=== PATIENT | male | born 1960 | race Caucasian/White ===

== ENCOUNTER 2017-06-17 08:33 | Observation (INO) | payer BC, OTHER ==
[~2017-06-17 08:33] MED LIST: Buffered Lidocaine 0.9% SYRIN* 5 ML/SYR SYRINGE INTRADERM ONE; Dexamethasone IV* 4 MG/ML 1 ML (4 MG) IV SLOW PU ONE; Famotidine IV* 10 MG/ML 2 ML (20 mg) IV ONE
[2017-06-17] MEDS ORDERED: Dexamethasone IV* 4 MG/ML 1 ML (4 MG) ONE (08:43)
[2017-06-17] MEDS ORDERED: Famotidine IV* 10 MG/ML 2 ML (20 mg) ONE (08:43)
[2017-06-17] MEDS ORDERED: ceFAZolin 2 GM PREMIX (*) 2 GM/50 ML BAG IVPB ONE (08:43)
[2017-06-17] MEDS ORDERED: Buffered Lidocaine 0.9% SYRIN* 5 ML/SYR SYRINGE ONE (08:44)
[2017-06-17] MEDS ORDERED: fentaNYL* 50 MCG/ML 2 ML VIAL (100 MCG VIAL) ONE ×2 (08:50→14:31)
[2017-06-17] MEDS ORDERED: Midazolam* 1 MG/ML 2 ML VIAL (2 MG) ONE (08:50)
[2017-06-17] MEDS ORDERED: Lidocaine 2% PF * 5 ML VIAL ONE (10:52)
[2017-06-17] MEDS ORDERED: Ondansetron INJ* 2 MG/ML VIAL ONE (10:57)
[2017-06-17] MEDS ORDERED: Succinylcholine* 20 MG/ML 10 ML VIAL ONE (10:57)
[2017-06-17] MEDS ORDERED: Propofol* 10 MG/ML 20 ML BTL IV PUSH ONE (10:57)
[2017-06-17] MEDS ORDERED: Bacitracin IV* 50,000 UNITS INJ ONE (11:03)
[2017-06-17] MEDS ORDERED: Thrombin 5,000 UNITS* 1 APPLIC KIT - topical use - TOPICAL ONE (11:03)
[2017-06-17] MEDS ORDERED: Lidocaine 1.5% EPI 1:200,000* 30 ML SDV ONE (11:03)
[2017-06-17] MEDS ORDERED: DiMENhydriNATE IV* 50 MG/ML VIAL IV PUSH PRN (11:55)
[2017-06-17] MEDS ORDERED: Ondansetron INJ* 2 MG/ML VIAL IV PRN (12:26)
[2017-06-17] MEDS ORDERED: Acetaminophen TAB* 325 MG PO PRN (12:26)
[2017-06-17] MEDS ORDERED: Magnesium Hydroxide LIQ* 30 ML UDC PO PRN (12:26)
[2017-06-17] MEDS ORDERED: Acetaminophen TAB* 325 MG ONE (13:48)
[2017-06-17] MEDS: fentaNYL* 50 MCG/ML 2 ML VIAL (100 MCG VIAL) IV PRN ×2 (14:31→14:39)
[2017-06-17] MEDS ORDERED: DiMENhydriNATE IV* 50 MG/ML VIAL ONE (14:53)
--- NOTE | 2017-06-17 14:59 | RAD ---
HISTORY: Lumbar discectomy COMPARISONS: June 12, 2017 VIEWS: 2 , portable intraoperative views of the lumbar spine performed during spinal surgery for localization FINDINGS: Lateral portable intraoperative views of the lumbar spine performed at approximately 11:46 AM demonstrates a metallic probe opposite of L4-L5 and L5 counting from L5 as the last lumbar type vertebral body. IMPRESSION: PORTABLE VIEWS OF THE LUMBAR SPINE FOR LOCALIZATION DURING SPINAL SURGERY
[2017-06-17] MEDS ORDERED: Ibuprofen TAB* 600 MG PO PRN (16:34)
[2017-06-17] MEDS: HYDROcodone/ACETAMIN 5-325 MG* 1 TAB PO PRN ×2 (16:48→20:56)
[2017-06-17] MEDS ORDERED: Atorvastatin* 20 MG TAB PO SCH (17:00)
[2017-06-17] MEDS ORDERED: Aspirin EC Low Dose* 81 MG TAB.EC PO SCH (20:00)
[2017-06-17] MEDS ORDERED: ROSUVASTATIN 10 MG PO SCH (21:00)
[2017-06-18] MEDS: HYDROcodone/ACETAMIN 5-325 MG* 1 TAB PO PRN ×3 (00:57→10:22)
[2017-06-18 07:46] VITALS: BP 141/63
--- NOTE | 2017-06-18 07:46 | PN ---
Progress Note - Progress Note Date of Service: 06/18/17 SOAP: Subjective: []POD # 1 Doing well,pre op leg pain better Moderate incisional pain Objective: []Neuro intact Dressing dry Assessment: []Satis post op course Plan: []D/C today D/C Instructions given
[2017-06-18] MEDS ORDERED: Fluticasone NASAL SPRAY 50MCG* 16 gm SPRAY BTL BOTH NARES SCH (09:00)
--- NOTE | 2017-06-21 17:21 | OP ---
OPERATIVE REPORT: DATE OF OPERATION: 06/17/17 DATE OF : 56 PRIMARY SURGEON: Cristhian Kelly MD ROLLING DOWN MACHINE OPERATOR: CLAIRE Tucker ANESTHESIA: General. PRE-OP DIAGNOSIS: Herniated nucleus pulposus, L4-5 on the left. POST-OP DIAGNOSIS: Herniated nucleus pulposus, L4-5 on the left. OPERATIVE PROCEDURE: Lumbar diskectomy, L4-5 on the left, with microdissection. DESCRIPTION OF PROCEDURE: After satisfactory general anesthesia was obtained, the patient was placed on the operating table in a prone position with the chest supported on the Sohail frame and the back slightly flexed. The lumbar region was then clipped, prepped and draped in a sterile manner for lum bar laminectomy and a skin incision outlined from L4 to L5. This incision was infiltrated with 1% Xy locaine with epinephrine, after which it was turned down sharply to the level of the lumbar fascia. The fascia was divided along the spinous processes of L4 and L5 and the paraspinal musculature stripp ed away from these posterior elements using the periosteal elevator and monopolar cautery. An intrao perative x-ray was obtained verifying proper interspace localization, after which a partial hemilamin ectomy was carried out by removing the inferior aspect of the L4 lamina and medial aspect of the face t complex using the combination of the Midas Subhash drill and Kerrison rongeurs. This was carried super iorly into the attachment of ligamentum flavum, was taken down. Ligamentum flavum was then removed w ith the Kerrison as well. At this point of surgery, the operating microscope was brought into the eld and the remainder of the procedure was done under microscopic visualization. Utilizing microdiss ection, epidural venous structures were coagulated and divided. Projecting beneath the L5 nerve root was noted to be a subcapsular herniation of disk material. An opening was made in the posterior kimi gitudinal ligament. Multiple frames of disk removed from this region. The disk space itself was the n entered and decompressed utilizing the pituitary forceps and curettes. It was felt that a satisfac tory decompression had been achieved. After assuring adequate hemostasis, the wound was thoroughly i rrigated after which the fascia was reapproximated with 0-Vicryl sutures. Subcutaneous tissue was cl osed with 3-0 Vicryl suture and the skin closed with skin clips. The estimated blood loss was less than 50 cc. The final sponge, padding and needle counts were corre ct. The patient was taken to the recovery room, extubated and in stable condition. [id number]/[facility] #: [id number]
== END 2017-06-18 10:35 | disposition home or self-care (01) ==
LOC: OR 08:33 → SSU 15:25
PROVIDERS: ADMIT Neurological Surgery; ATTEND Neurological Surgery
PROC: 01NB0ZZ Release Lumbar Nerve, Open Approach (ICD-10-PCS; 2017-06-17)
PROC: 0SB20ZZ Excision of Lumbar Vertebral Disc, Open Approach (ICD-10-PCS; principal; 2017-06-17 10:00)
DX: M51.26 Other intervertebral disc displacement, lumbar region (principal)
CPT/HCPCS: 72100; A9270-GY; G0378; J0330; J0690; J1100; J1240; J2250; J2405; J2704; J3010

== ENCOUNTER 2018-07-09 14:54 | Emergency (ER) | payer BC, OTHER ==
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
[2018-07-09] MEDS ORDERED: Acetaminophen TAB* 325 MG PO ONE (16:17)
[2018-07-09 17:04] VITALS: BP 167/77
== END 2018-07-09 18:08 | disposition home or self-care (01) ==
LOC: UCEAST 14:54
DX: S16.1XXA Strain of muscle, fascia and tendon at neck level, initial encounter (principal); S39.012A Strain of muscle, fascia and tendon of lower back, initial encounter; V40.5XXA Car driver injured in collision with pedestrian or animal in traffic accident, initial encounter; Y92.410 Unspecified street and highway as the place of occurrence of the external cause; R51 Headache; Z88.8 Allergy status to other drugs, medicaments and biological substances
CPT/HCPCS: 70450; 72125; 99213; A9270-GY; G0463

== ENCOUNTER 2019-08-04 09:36 | Emergency (ER) | payer BC, OTHER ==
--- OUTSIDE RECORDS SUMMARY | 2019-08-04 09:47 | XMS REPORT | Summary of Care ---
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 Reason for Visit Reason Comments Follow Up to hypertension, pt stated not taking januvia or tradjenta d/t insurancs and the side effcets Encounter Details Date Type Department Care Team Description 08/02/2019 Office Visit Kenneth Ramirez, Type 2 diabetes mellitus without complication, without long-term current use of insulin (HCC) (Primary Dx ); Practice MD Karen Essential hypertension; [address] Dyslipidemia; [place] [address] [place] [address] Congestion of right ear [phone] Allergies Active Allergy Reactions Severity Noted Date Comments Juan Inhibitors Respiratory Reaction Medium 05/21/2019 cough Environmental Swelling 07/15/2012 Statins Other Medium 10/21/2018 Myalgia documented as of this encounter (statuses as of 08/02/2019) Medications Medication Sig Dispensed Refills Start End Date Status Date daily vitamin PO Take 1 Tab by 0 Active TABS mouth DAILY. POTASSIUM CITRATE PO Take 99 mg by 0 Active mouth DAILY. cetirizine (ZYRTEC) Take 1 Tab by 30 Tab 2 Active 10 MG Oral mouth DAILY. 2 TabIndications: Environmental allergies Aspirin 81 MG Oral Take 81 mg by 0 Active Tab mouth DAILY. Loteprednol Place to the 0 Active Etabonate (ALREX) external eye 0.2 % Ophthalmic FOUR TIMES Suspension DAILY. Olopatadine Place 1 Drop 3 Bottle 1 Active (PATANOL) 0.1 % in both eyes 8 Ophthalmic Solution TWICE DAILY. cyclobenzaprine Take 1 Tab by 60 Tab 3 Active (FLEXERIL) 10 MG mouth THREE 9 Oral Tab TIMES DAILY NEEDED (muscle spasm). PHYTOSTEROLS PO Take by 0 Active mouth. POLICOSANOL PO Take by 0 Active mouth. Glucose Blood In 1 Strip by In 200 Bottle 1 Active Vitro Strip Vitro route 9 TWICE DAILY. Insurance perfered DX E11.9 Lancets Does not 1 Each by 200 Each 1 Active apply Misc Does not 9 apply route TWICE DAILY. Brand: [employer] perfered Dx:E11.9 2 time(s) A DAY Blood Glucose TEST BLOOD 1 Kit 0 Active Monitoring Suppl SUGAR TWO 9 (TRUE METRIX METER) TIMES DAILY w/Device Does not apply KitIndications: Type 2 diabetes with nephropathy (HCC) Red Yeast Rice 600 Take 1,200 mg 0 Active MG Oral Tab by mouth TWICE DAILY. Losartan Potassium Take 1 Tab by 30 Tab 5 Active 100 MG Oral Tab mouth DAILY. 0 fluticasone [place] 2 3 Bottle 1 Active (FLONASE) 50 MCG/ACT Sprays in 0 Nasal Suspension nose DAILY. [id number] Ethyl Take 2 Caps 360 Cap 1 Active Esters 1 g Oral Cap by mouth 0 TWICE DAILY. JANUVIA 50 MG Oral TAKE 1 TABLET 30 Tab 5 08/02/19 Discontinued Tab BY MOUTH 0 20 (Other) EVERY DAY linaGLIPtin Take 1 Tab by 30 Tab 5 08/02/19 Discontinued (TRADJENTA) 5 MG mouth DAILY. 0 20 (Other) Oral Tab documented as of this encounter (statuses as of 08/02/2019) Active Problems Problem Noted Date . 04/29/2019 DM (diabetes mellitus), type 2 with renal complications 02/05/2019 Rotator cuff tendinitis, right 01/11/2019 Borderline diabetes mellitus 07/13/2017 Chronic pain of left knee 04/12/2016 Hypertriglyceridemia 04/23/2012 Allergic rhinitis due to pollen 07/15/2008 Chronic ethmoidal sinusitis 07/15/2008 Esophageal reflux 07/16/2007 Hyperlipidemia 07/16/2007 IBS (irritable bowel syndrome) Overview: NL colonoscopy 2007 Fatty liver documented as of this encounter (statuses as of 08/02/2019) Immunizations Name Administration Dates Next Due Influenza (IM) Preservative Free 03/22/2019, 04/17/2015, 03/23/2010 PNEUMOCOCCAL POLYSACCHARIDE VACCINE 04/21/2019 documented as of this encounter Social History Tobacco Use Types Packs/Day Years Used Date Never Smoker Smokeless Tobacco: Never Used Alcohol Use Drinks/Week oz/Week Comments Yes 0 Standard drinks or equivalent 0.0 rare Sex Assigned at Date Recorded Not on file documented as of this encounter Last Filed Vital Signs Vital Sign Reading Time Taken Comments Blood Pressure 122/70 08/02/2019 8:52 AM EST Pulse 86 08/02/2019 8:52 AM EST Temperature 37.1 08/02/2019 8:52 AM C (98.7 EST F) Respiratory Rate - - Oxygen Saturation 98% 08/02/2019 8:52 AM EST Inhaled Oxygen Concentration - - Weight 96.1 kg (211 lb 14.4 oz) 08/02/2019 8:52 AM EST Height 180.3 cm (5' 11") 08/02/2019 8:52 AM EST Body Mass Index 29.55 08/02/2019 8:52 AM EST documented in this encounter Patient Instructions Patient InstructionsKaren Ramirez MD - 08/02/2019 9:00 AM EST1. Schedule non fasting blood tests in 3 months 2. Follow up after the tests and as needed documented in this encounter Progress Notes Karen Ramirez MD - 08/02/2019 9:00 AM EST PATIENT: Ike Irby : 1960 DATE OF SERVICE: 08/02/2019 SUBJECTIVE: 58-y.o. male for follow up of diabetes. Diabetic Review of Systems - medication compliance: compliant most of the time ( was doing well on Januvia, but it is not covered by his insurance. Stopped Tradjenta: thinks it was giving him arthralgia, nausea) , diabetic diet compliance: compliant most of the time, home glucose monitoring: is performed regularly, values are usually "all over the place" Other symptoms and concerns: recently treated for sinus infection. Still has some fullness in the R ear . BP well controlled Past Medical History: Diagnosis Date ? Chronic sinusitis ? Fatty liver ? GERD (gastroesophageal reflux disease) NL EGD, negative H.pylory ? Hypertriglyceridemia ? IBS (irritable bowel syndrome) NL colonoscopy 2007 ? Sleep apnea CPAP Current Outpatient Medications Medication Sig ? Aspirin 81 MG Oral Tab Take 81 mg by mouth DAILY. ? Blood Glucose Monitoring Suppl (TRUE METRIX METER) w/Device Does not apply Kit TEST BLOOD SUGAR TWO TIMES DAILY ? cetirizine (ZYRTEC) 10 MG Oral Tab Take 1 Tab by mouth DAILY. ? cyclobenzaprine (FLEXERIL) 10 MG Oral Tab Take 1 Tab by mouth THREE TIMES DAILY NEEDED (muscle spasm). ? daily vitamin PO TABS Take 1 Tab by mouth DAILY. ? fluticasone (FLONASE) 50 MCG/ACT Nasal Suspension [place] 2 Sprays in nose DAILY. ? Glucose Blood In Vitro Strip 1 Strip by In Vitro route TWICE DAILY. Insurance perfered DX E11.9 ? Lancets Does not apply Misc 1 Each by Does not apply route TWICE DAILY. Brand: [employer] Dx:E11.9 2 time(s) A DAY ? Losartan Potassium 100 MG Oral Tab Take 1 Tab by mouth DAILY. ? Loteprednol Etabonate (ALREX) 0.2 % Ophthalmic Suspension Place to the external eye FOUR TIMES DAILY. ? Olopatadine (PATANOL) 0.1 % Ophthalmic Solution Place 1 Drop in both eyes TWICE DAILY. ? [id number] Ethyl Esters 1 g Oral Cap Take 2 Caps by mouth TWICE DAILY. ? PHYTOSTEROLS PO Take by mouth. ? POLICOSANOL PO Take by mouth. ? POTASSIUM CITRATE PO Take 99 mg by mouth DAILY. ? Red Yeast Rice 600 MG Oral Tab Take 1,200 mg by mouth TWICE DAILY. No current facility-administered medications for this visit. OBJECTIVE: BP 122/70 (BP Location: Left arm, Patient Position: Sitting) | Pulse 86 | Temp 98.7 F (37.1 C) | Ht 5' 11" (1.803 m) | Wt 211 lb 14.4 oz (96.1 kg) | SpO2 98% | BMI 29.55 kg/m General appearance: alert, well appearing, and in no distress. Ears - bilateral TM's and external ear canals normal. Nasal exam - normal and patent, no erythema, discharge or polyps. Oropharyngeal exam - mucous membranes moist, pharynx normal without lesions. Neck exam - supple, no significant adenopathy. HGA1C - improved, CMP - improved sugar, FLP - low HDL Component Latest Ref Rng & Units 07/26/2019 07/26/2019 07/26/2019 8:51 AM 8:51 AM 8:51 AM Sodium 134 - 145 mmol/L 139 Potassium 3.5 - 5.1 mmol/L 4.0 Chloride 98 - 107 mmol/L 104 CO2 22 - 30 mmol/L 26 Calcium 8.3 - 10.1 mg/dl 9.5 Albumin 3.5 - 5.0 g/dl 4.6 BUN 9 - 20 mg/dl 15 Creatinine 0.8 - 1.5 mg/dl 0.7 (L) Glucose (Lab) 70 - 99 mg/dl 118 (H) Protein,Total 6.3 - 8.2 g/dl 8.0 Total Bilirubin 0.0 - 1.1 MG/DL 0.6 AST 17 - 59 U/L 39 ALT 21 - 72 U/L 44 ALKALINE PHOSPHATASE 40 - 150 U/L 59 eGFR See Interpretation Below ml/min/1.73ml Sq >60 BUN/Creatinine Ratio 6 - 22 RATIO 21 Anion Gap 3 - 11 mmol/L 9 A/G Ratio 0.8 - 2.0 ratio 1.4 Cholestrol <200 mg/dl 154 HDL >40 mg/dl 40 (L) Triglycerides <150 mg/dl 138 LDL Cholesterol <100 MG/DL 86 Cholesterol / HDL Ratio RATIO 3.9 LDL / HDL Ratio 2.2 Non-HDL Cholesterol 0 - 130 MG/DL 114 Patient Fasting: Yes Glycohemoglobin - POCT <=5.6 % 6.3 (H) I have recommended the following steps for improving diabetic care and outcome to him: diabetic dietdiscussed , home glucose monitoring emphasized, all medications, side effects and compliance discussed and glycohemoglobin and other lab monitoring discussed. . ICD-9-CM ICD-10-CM 1. Type 2 diabetes mellitus without complication, without long-term current use of insulin (HCC) 250.00 E11.9 COMPREHENSIVE METABOLIC PANEL Patient will try Tradjenta again (was sick last time he tried it) GLYCOHEMOGLOBIN A1C 2. Essential hypertension Well controlled 401.9 I10 3. Dyslipidemia Improved 272.4 E78.5 4. Congestion of right ear Normal exam. Continue Flonase 388.8 H93.8X1 Patient Instructions 1. Schedule non fasting blood tests in 3 months 2. Follow up after the tests and as needed Author: Karen Ramirez MD 08/02/2019 09:43 documented in this encounter Plan of Treatment Date Type Specialty Care Team Description 10/15/2019 Lab Internal Medicine 10/22/2019 Office Visit Family Practice Karen Ramirez MD [address] [place] [address] [phone] Name Type Priority Associated Diagnoses Order Schedule COMPREHENSIVE METABOLIC Lab Routine Type 2 diabetes Expected: 08/02/2019 PANEL mellitus without (Approximate), complication, without Expires: 08/02/2020 long-term current use of insulin (HCC) GLYCOHEMOGLOBIN A1C Lab Routine Type 2 diabetes Expected: 08/02/2019 mellitus without (Approximate), complication, without Expires: 08/02/2020 long-term current use of insulin (HCC) Health Maintenance Due Date Last Done Comments DTaP/Tdap/Td Vaccines ( - 1969 Tdap) DEPRESSION SCREENING 11/19/2019 11/18/2018, 11/18/2018 FOOT EXAM 01/06/2020 01/05/2019, 01/05/2019 HEMOGLOBIN A1C 01/24/2020 07/26/2019, 03/22/2019, 12/18/2018, Additional history exists ZOSTER IMMUNIZATION SERIES 04/21/2020 Postponed from (1 of 2) 2008 (Vaccine not available) LIPID DISORDER SCREENING 07/26/2020 07/26/2019, 12/18/2018, 06/03/2018, Additional history exists Diabetic Eye Exam 04/21/2021 04/21/2019, 04/17/2019, 04/17/2019 Colonoscopy 01/30/2022 01/31/2012 (Postponed), 08/06/2007, 08/06/2007 INFLUENZA VACCINE Completed 03/22/2019, 04/17/2015, 03/23/2010 PNEUMOCOCCAL 0-64 YRS Completed 04/21/2019 HEPATITIS A IMMUNIZATION Aged Out No longer eligible SERIES based on patient's age to complete this topic HPV IMMUNIZATION SERIES Aged Out No longer eligible based on patient's age to complete this topic MENINGOCOCCAL VACCINE IMM Aged Out No longer eligible based on patient's age to complete this topic documented as of this encounter Goals Goal Patient Goal Associated Recent Patient-Stated? Author Type Problems Progress Blood Pressure Blood Pressure 122/70 No James, < 140/90 (08/02/2019 Karen, 8:52 AM EST) Note: This is an individualized treatment (blood pressure) goal for Ike Irby: Displayed above (on the left) is your goal for blood pressure control. Your most recent blood pressure is also shown above, on the right. You should try to achieve blood pressures that are lower than your goal listed above (on the left). Glycohemoglobin A1c < 7.0 Diabetes 6.3 (07/26/2019 8:51 No Karen Ramirez, AM EST) Note: This is an individualized treatment (diabetes control, HgbA1C) goal for Ike Irby: Displayed above is your progress towards your HgbA1C goal. Your goal is shown above (on the left); your most recent HgbA1C is shown on the right. Note that lower numbers are better. Weight loss vs. 18 mo Lifestyle 19.6 (08/02/2019 8:52 AM Karen Lea MD max (lbs) >= 10 EST) Note: This is an individualized lifestyle goal for Ike Irby: Your body mass index (BMI) is more than 30. You should lose weight. A reasonable starting goal is to lose 10 pounds. Displayed above is how many pounds you have lost thus far towards your 10 pound weight loss goal. Keep immunizations current Lifestyle Karen Lea MD Note: This is an individualized lifestyle goal for Ike Irby: Please be sure to keep up-to-date on recommended immunizations. For example, this would include a yearly influenza vaccine. Immunization status can be seen by looking at the Health Maintenance sections of your [employer], Plan of Care, and any After Visit Summaries. Take all prescribed medications as Self-management No Karen Ramirez MD directed Note: This is an individualized self-management goal for Ike Irby: Please take all prescribed medications as directed. 1. Do not skip doses. If you cannot afford your medications, talk with your doctor. 2. Use a pill reminder system such as a pill box if needed. Your pharmacist can help you with this. 3. Contact your Pharmacy 5 days before your medication runs out. If you cannot take your medications for any reasons, talk with your doctor. 4. Please bring all of your medication bottles and inhalers (or a list of all your medications/inhalers) with you to every visit. Potential barriers to meeting all of your care plan goals will continue to be addressed on an ongoing basis. documented as of this encounter Results Not on filedocumented in this encounter Visit Diagnoses Diagnosis Type 2 diabetes mellitus without complication, without long-term current use of insulin (HCC) Essential hypertension Unspecified essential hypertension Dyslipidemia Other and unspecified hyperlipidemia Congestion of right ear documented in this encounter (Home) [facility] [phone] [address] (Work) [place] [address] documented as of this encounter
--- OUTSIDE RECORDS SUMMARY | 2019-08-04 09:47 | XMS REPORT | Summary of Care ---
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 Reason for Visit Reason Comments Nasal Congestion with right side head pressure, cough, post nasal drip, throat is dry, also states fatigue6 days Encounter Details Date Type Department Care Team Description 06/21/2019 Office Visit [place] Leesa Rivas, [facility] PA-C sinusitis, recurrence [address] not specified ([place] [address] [place] [address] Dx) [phone] Allergies Active Allergy Reactions Severity Noted Date Comments Juan Inhibitors Respiratory Reaction Medium 05/21/2019 cough Environmental Swelling 07/15/2012 Statins Other Medium 10/21/2018 Myalgia documented as of this encounter (statuses as of 06/21/2019) Medications Medication Sig Dispensed Refills Start Date End Date Status daily vitamin PO TABS Take 1 Tab by 0 Active mouth DAILY. POTASSIUM CITRATE PO Take 99 mg by 0 Active mouth DAILY. cetirizine (ZYRTEC) 10 Take 1 Tab by 30 Tab 2 01/31/2012 Active MG Oral TabIndications: mouth DAILY. Environmental allergies Aspirin 81 MG Oral Tab Take 81 mg by 0 Active mouth DAILY. Loteprednol Etabonate Place to the 0 Active (ALREX) 0.2 % external eye Ophthalmic Suspension FOUR TIMES DAILY. Olopatadine (PATANOL) Place 1 Drop in 3 Bottle 1 07/17/2017 Active 0.1 % Ophthalmic both eyes TWICE Solution DAILY. cyclobenzaprine Take 1 Tab by 60 Tab 3 08/21/2018 Active (FLEXERIL) 10 MG Oral mouth THREE Tab TIMES DAILY NEEDED (muscle spasm). fluticasone (FLONASE) [place] 2 Sprays 3 Bottle 1 10/21/2018 Active 50 MCG/ACT Nasal in nose DAILY. Suspension [id number] Ethyl TAKE 2 CAPSULES 360 Cap 1 01/05/2019 Active Esters 1 g Oral Cap TWICE DAILY PHYTOSTEROLS PO Take by mouth. 0 Active POLICOSANOL PO Take by mouth. 0 Active Glucose Blood In Vitro 1 Strip by In 200 Bottle 1 02/05/2019 Active Strip Vitro route TWICE DAILY. Insurance perfered DX E11.9 Lancets Does not apply 1 Each by Does 200 Each 1 02/05/2019 Active Misc not apply route TWICE DAILY. Brand: [employer] Dx:E11.9 2 time(s) A DAY Blood Glucose TEST BLOOD SUGAR 1 Kit 0 03/09/2019 Active Monitoring Suppl (TRUE TWO TIMES DAILY METRIX METER) w/Device Does not apply KitIndications: Type 2 diabetes with nephropathy (HCC) sitagliptin (JANUVIA) Take 1 Tab by 30 Tab 1 04/29/2019 Active 50 MG Oral Tab mouth DAILY. Losartan Potassium 100 Take 1 Tab by 30 Tab 1 04/29/2019 Active MG Oral Tab mouth DAILY. Red Yeast Rice 600 MG Take 1,200 mg by 0 Active Oral Tab mouth TWICE DAILY. cefuroxime (CEFTIN) 500 Take 1 Tab by 20 Tab 0 06/21/2019 Active MG Oral Tab mouth EVERY TWELVE HOURS. documented as of this encounter (statuses as of 06/21/2019) Active Problems Problem Noted Date . 04/29/2019 DM (diabetes mellitus), type 2 with renal complications 02/05/2019 Rotator cuff tendinitis, right 01/11/2019 Borderline diabetes mellitus 07/13/2017 Chronic pain of left knee 04/12/2016 Hypertriglyceridemia 04/23/2012 Allergic rhinitis due to pollen 07/15/2008 Chronic ethmoidal sinusitis 07/15/2008 Esophageal reflux 07/16/2007 Hyperlipidemia 07/16/2007 IBS (irritable bowel syndrome) Overview: NL colonoscopy 2008 Fatty liver documented as of this encounter (statuses as of 06/21/2019) Immunizations Name Administration Dates Next Due Influenza (IM) Preservative Free 03/22/2019, 04/17/2015, 03/23/2010 PNEUMOCOCCAL POLYSACCHARIDE VACCINE 04/21/2019 documented as of this encounter Social History Tobacco Use Types Packs/Day Years Used Date Never Smoker Smokeless Tobacco: Never Used Alcohol Use Drinks/Week oz/Week Comments Yes 0 Standard drinks or equivalent 0.0 rare Sex Assigned at Date Recorded Not on file Job Start Date Occupation Industry Not on file Not on file Not on file Travel History Travel Start Travel End No recent travel history available. documented as of this encounter Last Filed Vital Signs Vital Sign Reading Time Taken Comments Blood Pressure 130/72 06/21/2019 11:19 AM EST Pulse 96 06/21/2019 11:19 AM EST Temperature 36.3 06/21/2019 11:19 AM EST C (97.3 F) Respiratory Rate - - Oxygen Saturation 98% 06/21/2019 11:19 AM EST Inhaled Oxygen Concentration - - Weight 97.1 kg (214 lb) 06/21/2019 11:19 AM EST Height 180.3 cm (5' 11") 06/21/2019 11:19 AM EST Body Mass Index 29.85 06/21/2019 11:19 AM EST documented in this encounter Patient Instructions Patient InstructionsDoLeesa fountain PA-C - 06/21/2019 11:20 AM ESTEscribed ceftin 500mg, 1 pill twice a day x 10 days, take with food OTC Mucinex severe cold and cough syrup Avoid creamy foods and drink Rest, gargle with warm salt water Push water, soup, juice, tea with honey/lemon OTC Tylenol/Ibuprofen for fever/pain Call if not improving or with any questions or concerns documented in this encounter Progress Notes Leesa Doe PA-C - 06/21/2019 11:20 AM EST PATIENT: Ike Irby : 1960 DATE OF SERVICE: 06/21/2019 REFERRING PRACTITIONER: Self-Referred PRIMARY CARE PROVIDER: Karen Ramirez CHIEF COMPLAINT: Chief Complaint Patient presents with Nasal Congestion with right side head pressure, cough, post nasal drip, throat is dry, also states fatigue6 days Subjective HISTORY OF PRESENT ILLNESS: Ike Irby is a 58-y.o. male who presents with nasal congestion, right sided sinus pressure, coughing, post nasal drip, dry throat, fatigue 6 days Did use OTC Afrin nasal spray daily x 3 days Has DM II, this morning fasting was 115, taking all meds as prescribed Denies fever, chills, nausea, vomiting, diarrhea, chest pains, SOB Past Medical History: Diagnosis Date Chronic sinusitis Fatty liver GERD (gastroesophageal reflux disease) NL EGD, negative H.pylory Hypertriglyceridemia IBS (irritable bowel syndrome) NL colonoscopy 2007 Sleep apnea CPAP Past Surgical History: Procedure Laterality Date [place] KNEE SCOPE,SHAVE ARTICULAR CART date not documented Knee effusion Family History Problem Relation Age of Onset Thyroid Mother Current Outpatient Medications Medication Sig Aspirin 81 MG Oral Tab Take 81 mg by mouth DAILY. Blood Glucose Monitoring Suppl (TRUE METRIX METER) w/Device Does not apply Kit TEST BLOOD SUGAR TWO TIMES DAILY cetirizine (ZYRTEC) 10 MG Oral Tab Take 1 Tab by mouth DAILY. cyclobenzaprine (FLEXERIL) 10 MG Oral Tab Take 1 Tab by mouth THREE TIMES DAILY NEEDED (muscle spasm). daily vitamin PO TABS Take 1 Tab by mouth DAILY. fluticasone (FLONASE) 50 MCG/ACT Nasal Suspension [place] 2 Sprays in nose DAILY. Glucose Blood In Vitro Strip 1 Strip by In Vitro route TWICE DAILY. Insurance perfered DX E11.9 Lancets Does not apply Misc 1 Each by Does not apply route TWICE DAILY. Brand: [employer] Dx:E11.9 2 time(s) A DAY Losartan Potassium 100 MG Oral Tab Take 1 Tab by mouth DAILY. Loteprednol Etabonate (ALREX) 0.2 % Ophthalmic Suspension Place to the external eye FOUR TIMES DAILY. Olopatadine (PATANOL) 0.1 % Ophthalmic Solution Place 1 Drop in both eyes TWICE DAILY. [id number] Ethyl Esters 1 g Oral Cap TAKE 2 CAPSULES TWICE DAILY PHYTOSTEROLS PO Take by mouth. POLICOSANOL PO Take by mouth. POTASSIUM CITRATE PO Take 99 mg by mouth DAILY. Red Yeast Rice 600 MG Oral Tab Take 1,200 mg by mouth TWICE DAILY. sitagliptin (JANUVIA) 50 MG Oral Tab Take 1 Tab by mouth DAILY. No current facility-administered medications for this visit. Allergies Allergen Reactions Juan Inhibitors Respiratory Reaction cough Statins Other Myalgia Environmental Swelling Social History Socioeconomic History Marital status: Spouse name: Not on file Number of children: Not on file Years of education: Not on file Highest education level: Not on file Occupational History Not on file Social Needs Financial resource strain: Not on file Food insecurity Worry: Not on file Inability: Not on file Transportation needs Medical: Not on file Non-medical: Not on file Tobacco Use Smoking status: Never Smoker Smokeless tobacco: Never Used Substance and Sexual Activity Alcohol use: Yes Alcohol/week: 0.0 standard drinks Comment: rare Drug use: Not on file Sexual activity: Not on file Lifestyle Physical activity Days per week: Not on file Minutes per session: Not on file Stress: Not on file Relationships Social connections Talks on phone: Not on file Gets together: Not on file Attends shinto service: Not on file Active member of club or organization: Not on file Attends meetings of clubs or organizations: Not on file Relationship status: Not on file Intimate partner violence Fear of current or ex partner: Not on file Emotionally abused: Not on file Physically abused: Not on file Forced sexual activity: Not on file Other Topics Concern Back Care Not Asked Bike Helmet Not Asked Blood Transfusions Not Asked Caffeine Concern Not Asked Exercise Not Asked Hobby Hazards Not Asked International Travel Not Asked Service Not Asked Occupational Exposure Not Asked Seat Belt Not Asked Self-Exams Not Asked Sleep Concern Not Asked Special Diet Not Asked Stress Concern Not Asked Weight Concern Not Asked Social History Narrative The patient is . He lives with his and threechildren in [place]. 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 He has no pets athome. No one smokes in the home. REVIEW OF SYSTEMS: Skin: negative skin lesions Eyes: negative visual blurring Ears/Nose/Throat: positive rhinorrhea, sinus pressure, post nasal drip Respiratory: positive cough Cardiovascular: negative chest pain Gastrointestinal: negative abdominal pain, constipation, diarrhea, nausea or vomiting Genitourinary: negative burning on urination, dysuria Musculoskeletal: negative arthritis/joint pain Neurologic: negative numbness or tingling of feet or hands Psychiatric: negative anxiety Hematologic/Lymphatic/Immunologic: positive allergies Endocrine: positive diabetes II Objective PHYSICAL EXAMINATION: VITALS: BP 130/72 (BP Location: Left arm, Patient Position: Sitting) | Pulse 96 | Ht 5' 11" (1.803 m) | Wt 214 lb (97.1 kg) | SpO2 98% | BMI 29.85 kg/m Body mass index is 29.85 kg/m. General appearance: alert, mild distress, cooperative, oriented times 3 Skin: Skin color, texture, turgor normal. No rashes or lesions. Head: Normocephalic. No masses, lesions, tenderness or abnormalities Eyes: conjunctivae/corneas clear. PERRL, EOM's intact. Ears: positive findings: TMs bulging bilaterally Nose/Sinuses: positive findings: mucosa erythematous and swollen, clear rhinorrhea, frontal and maxillary sinuses tender to palpation Oropharynx: positive findings: mild oropharyngeal erythema, post nasal drip present Neck: Neck supple, FROM. No cervical or supraclavicular adenopathy. Lungs: Lungs clear. Chest symmetrical. Normal breath sounds. Heart: RRR. No murmur, clicks or gallops. No peripheral edema . IMPRESSION: ICD-9-CM ICD-10-CM 1. Acute frontal sinusitis, recurrence not specified 461.1 J01.10 Plan PLAN: Patient requested ceftin, says augmentin in past did not work Escribed ceftin 500mg, 1 pill twice a day x 10 days, take with food OTC Mucinex severe cold and cough syrup Avoid creamy foods and drink Rest, gargle with warm salt water Push water, soup, juice, tea with honey/lemon OTC Tylenol/Ibuprofen for fever/pain Call if not improving or with any questions or concerns Author: Leesa Doe PA-C 06/21/2019 11:10 documented in this encounter Plan of Treatment Date Type Specialty Care Team Description 06/28/2019 Office Visit Family Practice Karen Ramirez MD [address] [place] [address] [phone] 07/26/2019 Lab Internal Medicine 08/02/2019 Office Visit [facility] Karen Ramirez MD [address] [place] [address] [phone] Health Maintenance Due Date Last Done Comments DTaP/Tdap/Td Vaccines (1 - 1969 Tdap) HEMOGLOBIN A1C 09/21/2019 03/22/2019, 12/18/2018, 06/03/2018, Additional history exists DEPRESSION SCREENING 11/19/2019 11/18/2018, 11/18/2018 LIPID DISORDER SCREENING 12/19/2019 12/18/2018, 06/03/2018, 07/26/2017, Additional history exists FOOT EXAM 01/06/2020 01/05/2019, 01/05/2019 ZOSTER IMMUNIZATION SERIES 04/21/2020 Postponed from (1 of 2) 2008 (Vaccine not available) Diabetic Eye Exam 04/21/2021 04/21/2019, 04/17/2019, 04/17/2019 [...] Type Problems Progress Blood Pressure Blood Pressure 130/72 No James, < 140/90 (06/21/2019 Karen, 11:19 AM EST) Note: This is an individualized treatment (blood pressure) goal for Ike Irby: Displayed above (on the left) is your goal for blood pressure control. Your most recent blood pressure is also shown above, on the right. You should try to achieve blood pressures that are lower than your goal listed above (on the left). Glycohemoglobin A1c < 7.0 Diabetes 6.9 (03/22/2019 10:27 No Karen Ramirez, AM EDT) Note: This is an individualized treatment (diabetes control, HgbA1C) goal for Ike Irby: Displayed above is your progress towards your HgbA1C goal. Your goal is shown above (on the left); your most recent HgbA1C is shown on the right. Note that lower numbers are better. Weight loss vs. 18 mo Lifestyle 17.5 (06/21/2019 11:19 AM No Karen Ramirez MD max (lbs) >= 10 EST) Note: This is an individualized lifestyle goal for Ike Irby: Your body mass index (BMI) is more than 30. You should lose weight. A reasonable starting goal is to lose 10 pounds. Displayed above is how many pounds you have lost thus far towards your 10 pound weight loss goal. Keep immunizations current Lifestyle No Karen Ramirez MD Note: This is an individualized lifestyle [...] filedocumented in this encounter Visit Diagnoses Diagnosis Acute frontal sinusitis, recurrence not specified documented in this encounter documented as of this encounter
--- OUTSIDE RECORDS SUMMARY | 2019-08-04 09:47 | XMS REPORT | Summary of Care ---
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 Toe Pain Left great toe pain feels like electric shock / numb. Encounter Details Date Type Department Care Team Description 06/28/2019 Office Visit [place] [facility], Essential hypertension ( Primary Dx); Practice MD Karen Cough; [address] Pain [place] [address] [place] [address] [phone] Allergies Active Allergy Reactions Severity Noted Date Comments Juan Inhibitors Respiratory Reaction Medium 05/21/2019 cough Environmental Swelling 07/15/2012 Statins Other Medium 10/21/2018 Myalgia documented as of this encounter (statuses as of 06/28/2019) Medications Medication Sig Dispensed Refills Start End [...] not 9 apply route TWICE DAILY. Brand: [employer] perfered Dx:E11.9 2 time(s) A DAY Blood Glucose TEST BLOOD 1 Kit 0 Active Monitoring Suppl SUGAR TWO 9 (TRUE METRIX METER) TIMES DAILY w/Device Does not apply KitIndications: Type 2 diabetes with nephropathy (HCC) Red Yeast Rice 600 Take 1,200 mg 0 Active MG Oral Tab by mouth TWICE DAILY. JANUVIA 50 MG Oral TAKE 1 TABLET 30 Tab 5 Active Tab BY MOUTH 0 EVERY DAY cefuroxime (CEFTIN) Take 1 Tab by 20 Tab 0 Active 500 MG Oral Tab mouth EVERY 0 TWELVE HOURS. Losartan Potassium Take 1 Tab by 30 Tab 5 Active 100 MG Oral Tab mouth DAILY. 0 fluticasone [place] 2 3 Bottle 1 Active (FLONASE) 50 MCG/ACT Sprays in 0 Nasal Suspension nose DAILY. [id number] Ethyl Take 2 Caps 360 Cap 1 Active Esters 1 g Oral Cap by mouth 0 TWICE DAILY. fluticasone [place] 2 3 Bottle 1 06/28/19 Discontinued (FLONASE) 50 MCG/ACT Sprays in 9 20 (Reorder) Nasal Suspension nose DAILY. [id number] Ethyl TAKE 2 360 Cap 1 06/28/19 Discontinued Esters 1 g Oral Cap CAPSULES 9 20 (Reorder) TWICE DAILY documented as of this encounter (statuses as of 06/28/2019) Active Problems Problem Noted Date . 04/29/2019 [...] as of this encounter (statuses as of 06/28/2019) Immunizations Name Administration Dates Next Due Influenza [...] Sign Reading Time Taken Comments Blood Pressure 122/68 06/28/2019 10:22 AM EST Pulse 80 06/28/2019 10:22 AM EST Temperature - - Respiratory Rate - - Oxygen Saturation 99% 06/28/2019 10:22 AM EST Inhaled Oxygen Concentration - - Weight 95.7 kg (211 lb) 06/28/2019 10:22 AM EST Height 180.3 cm (5' 11") 06/28/2019 10:22 AM EST Body Mass Index 29.43 06/28/2019 10:22 AM EST documented in this encounter Patient Instructions Patient InstructionsKaren Ramirez MD - 06/28/2019 10:40 AM EST1. Wear well fitting shoes with good arch support 2. Follow up as scheduled and as needed documented in this encounter Progress Notes Karen Ramirez MD - 06/28/2019 10:40 AM EST Patient: Ike Irby Date of Service: 06/28/2019 Subjective: Iek Irby is a 58-y.o. male who presents for Chief Complaint Patient presents with Diabetes 1 month follow up. Toe Pain Left great toe pain feels like electric shock / numb. Patient comes follow up HTN, chronic cough likely due to JUAN inhibitor. BP is well controlled on Cozaar. Cough much improved until recently when he developed upper respiratory infection. Also complains of intermittent shooting pain in L great toe. Usually when wears narrow shoes. Past Medical History: Diagnosis Date Chronic sinusitis Fatty liver GERD (gastroesophageal reflux disease) NL EGD, negative H.pylory Hypertriglyceridemia IBS (irritable bowel syndrome) NL colonoscopy 2007 Sleep apnea CPAP Outpatient Medications as of 06/28/2019 Medication Sig Dispense Refill Aspirin 81 MG Oral Tab Take 81 mg by mouth DAILY. Blood Glucose Monitoring Suppl (TRUE METRIX METER) w/Device Does not apply Kit TEST BLOOD SUGAR TWO TIMES DAILY 1 Kit 0 cefuroxime (CEFTIN) 500 MG Oral Tab Take 1 Tab by mouth EVERY TWELVE HOURS. 20 Tab 0 cetirizine (ZYRTEC) 10 MG Oral Tab Take 1 Tab by mouth DAILY. 30 Tab 2 cyclobenzaprine (FLEXERIL) 10 MG Oral Tab Take 1 Tab by mouth THREE TIMES DAILY NEEDED (muscle spasm). 60 Tab 3 daily vitamin PO TABS Take 1 Tab by mouth DAILY. Glucose Blood In Vitro Strip 1 Strip by In Vitro route TWICE DAILY. Insurance preferred DX E11.9 200 Bottle 1 JANUVIA 50 MG Oral Tab TAKE 1 TABLET BY MOUTH EVERY DAY 30 Tab 5 Lancets Does not apply Misc 1 Each by Does not apply route TWICE DAILY. Brand: insurance preferred Dx:E11.9 2 time(s) A DAY 200 Each 1 Losartan Potassium 100 MG Oral Tab Take 1 Tab by mouth DAILY. 30 Tab 5 Loteprednol Etabonate (ALREX) 0.2 % Ophthalmic Suspension Place to the external eye FOUR TIMES DAILY. Olopatadine (PATANOL) 0.1 % Ophthalmic Solution Place 1 Drop in both eyes TWICE DAILY. 3 Bottle 1 PHYTOSTEROLS PO Take by mouth. POLICOSANOL PO Take by mouth. POTASSIUM CITRATE PO Take 99 mg by mouth DAILY. Red Yeast Rice 600 MG Oral Tab Take 1,200 mg by mouth TWICE DAILY. No current facility-administered medications on file as of 06/28/2019. Allergies Allergen Reactions Juan Inhibitors Respiratory Reaction cough Statins Other Myalgia Environmental Swelling Review of Systems: All remaining review of systems was negative. Objective: BP 122/68 Pulse 80 Ht 5' 11" (1.803 m) Wt 211 lb (95.7 kg) SpO2 99% BMI 29.43 kg/m2 GENERAL: alert, no distress THROAT: lips, mucosa, and tongue normal: teeth and gums normal NECK: supple, symmetrical, trachea midline and no adenopathy LUNGS: clear to auscultation bilaterally HEART: regular rate and rhythm, S1, S2 normal, no murmur, click, rub or gallop Examination of the feet reveals warm, good capillary refill and normal DP and PT pulses. No tenderness or deformation in the L big toe ICD-9-CM ICD-10-CM 1. Essential hypertension 401.9 I10 2. Cough Improved 786.2 R05 3. Pain of toe of left foot 729.5 M79.675 Patient Instructions 1. Wear well fitting shoes with good arch support 2. Follow up as scheduled and as needed Author: Karen Ramirez MD documented in this encounter Plan of Treatment Date Type Specialty Care Team Description 07/26/2019 Lab Internal Medicine 08/02/2019 Office Visit Family Practice Karen Ramirez MD [address] [place] [address] [phone] Health Maintenance Due Date Last Done Comments DTaP/Tdap/Td Vaccines ( - 1969 Tdap) HEMOGLOBIN A1C 09/21/2019 03/22/2019, [...] Type Problems Progress Blood Pressure Blood Pressure 122/68 No James, < 140/90 (06/28/2019 Karen, 10:22 AM EST) Note: This is an individualized [...] Diabetes 6.9 (03/22/2019 10:27 No Karen Ramirez, SANJIV EDT) Note: This is an individualized treatment (diabetes control, HgbA1C) goal for Ike Irby: Displayed above is your progress towards your HgbA1C goal. Your goal is shown above (on the left); your most recent HgbA1C is shown on the right. Note that lower numbers are better. Weight loss vs. 18 mo Lifestyle 20.5 (06/28/2019 10:22 AM Karen Lea MD max (lbs) >= [...] Summaries. Take all prescribed medications as Self-management Karen Lea MD directed Note: This is an individualized [...] filedocumented in this encounter Visit Diagnoses Diagnosis Essential hypertension Unspecified essential hypertension Cough Pain of toe of left foot Pain in limb documented in this encounter documented as of this encounter
--- OUTSIDE RECORDS SUMMARY | 2019-08-04 09:47 | XMS REPORT | Summary of Care ---
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 Encounter Details Date Type Department Care Team Description 06/29/2019 Office Visit [place] Abel Naranjo Viral gastroenteritis Medicine MD Ale (Primary Dx) [address] [place] [address] [place], [place] [id number] Allergies Active Allergy Reactions Severity Noted Date Comments Juan Inhibitors Respiratory Reaction Medium 05/21/2019 cough Environmental Swelling 07/15/2012 Statins Other Medium 10/21/2018 Myalgia documented as of this encounter (statuses as of 06/29/2019) Medications Medication Sig Dispensed Refills Start End [...] not 9 apply route TWICE DAILY. Brand: insurance perfered Dx:E11.9 2 time(s) A DAY Blood [...] Active Tab BY MOUTH 0 EVERY DAY Losartan Potassium Take 1 Tab by 30 Tab 5 Active 100 MG Oral Tab mouth DAILY. 0 fluticasone [place] 2 3 Bottle 1 Active (FLONASE) 50 MCG/ACT Sprays in 0 Nasal Suspension nose DAILY. [id number] Ethyl Take 2 Caps 360 Cap 1 Active Esters 1 g Oral Cap by mouth 0 TWICE DAILY. cefuroxime (CEFTIN) Take 1 Tab by 20 Tab 0 06/29/19 Discontinued 500 MG Oral Tab mouth EVERY 0 20 (Provider TWELVE HOURS. Discontinued) documented as of this encounter (statuses as of 06/29/2019) Active Problems Problem Noted Date . 04/29/2019 [...] as of this encounter (statuses as of 06/29/2019) Immunizations Name Administration Dates Next Due Influenza [...] Sign Reading Time Taken Comments Blood Pressure 120/64 06/29/2019 4:02 PM EST Pulse 72 06/29/2019 4:02 PM EST Temperature - - Respiratory Rate - - Oxygen Saturation - - Inhaled Oxygen Concentration - - Weight 96.2 kg (212 lb) 06/29/2019 4:02 PM EST Height 180.3 cm (5' 11") 06/29/2019 4:02 PM EST Body Mass Index 29.57 06/29/2019 4:02 PM EST documented in this encounter Patient Instructions Patient InstructionsAbel iKnney MD - 06/29/2019 3:40 PM ESTStop the antibiotic ceftin it may be worsening the diarrhea Diarrhea from viral infection Please drink more fluids throughout the day to prevent dehydration. Drink 1 12- 15 ounce glass of water every 2-4 hours while awake. The 'BRAT' diet is suggested, then progress to diet as tolerated as symptoms yan. Call if bloody stools, persistent diarrhea, vomiting, fever or abdominal pain. [place] diet is ok do this for 3-4 more days Use over the counter diarrhea medication called loperamide 2 mg 1-2 pills four times daily as needed, maximum daily dose is 8 pills. documented in this encounter Progress Notes Abel Kinney MD - 06/29/2019 3:40 PM EST (S) Ike Irby is a 58-y.o. male with complaint of gastrointestinal symptoms of watery diarrhea, nausea for 3 days. No blood in stool. (O) Physical exam reveals the patient appears well. Hydration status: mildly dehydrated. Abdomen: abdomen is soft without significant tenderness, masses, organomegaly or guarding.. (A) Viral Gastroenteritis (P) I have recommended small amounts clear fluids frequently, soups, juices, water, 'BRAT' diet and advance diet as tolerated. Return office visit if symptoms persist or worsen; I have alerted the patient to call if high fever, dehydration, marked weakness, fainting, increased abdominal pain, blood instool or vomit. Patient Instructions Stop the antibiotic ceftin it may be worsening the diarrhea Diarrhea from viral infection Please drink more fluids throughout the day to prevent dehydration. Drink 1 12- 15 ounce glass of water every 2-4 hours while awake. The 'BRAT' diet is suggested, then progress to diet as tolerated as symptoms yan. Call if bloody stools, persistent diarrhea, vomiting, fever or abdominal pain. [place] diet is ok do this for 3-4 more days Use over the counter diarrhea medication called loperamide 2 mg 1-2 pills four times daily as needed, maximum daily dose is 8 pills. documented in this encounter Plan of Treatment Date Type Specialty Care Team Description 07/26/2019 Lab Internal Medicine 08/02/2019 Office Visit Family Practice Karen Ramirez MD [address] [place] [address] [phone] Health Maintenance Due Date Last Done Comments [...] Type Problems Progress Blood Pressure Blood Pressure 120/64 No James, < 140/90 (06/29/2019 Karen, 4:02 PM EST) Note: This is an individualized treatment [...] 7.0 Diabetes 6.9 (03/22/2019 10:27 No Karen Ramirez AM EDT) Note: This is an individualized treatment (diabetes control, HgbA1C) goal for Ike Irby: Displayed above is your progress towards your HgbA1C goal. Your goal is shown above (on the left); your most recent HgbA1C is shown on the right. Note that lower numbers are better. Weight loss vs. 18 mo Lifestyle 19.5 (06/29/2019 4:02 PM No Karen Ramirez MD max (lbs) >= [...] at the [facility], [facility] Care, and any After Visit [...] filedocumented in this encounter Visit Diagnoses Diagnosis Viral gastroenteritis Intestinal infection due to other organism, not elsewhere classified documented in this encounter (Home) [place] [address] documented as of this encounter
--- NOTE | 2019-08-04 10:21 | ED ---
Head Injury - HPI Summary HPI Summary: This pt is a 58 Y/O M presenting to [facility] with a CC of a posterior head injury that occurred at 0810 this morning after slipping on ice. He denies any LOC or confusion following the event. He states that he has a headache that is rated a 10/10 in severity and is located on the parietal regions. He also reports neck stiffness and pain. He denies any N/V, numbness/tingling, and visual issues. He has a PMHx of HTN and pre-diabetes. He denies any anti-coagulation medications. He has no aggravating or alleviating factors. - History Of Current Complaint Chief Complaint: EDHeadInjury Stated Complaint: FELL ON ICE PER PT Time Seen by Provider: 08/04/19 10:11 Hx Obtained From: Patient Mechanism Of Injury: Fall From A Standing Position Onset/Duration: Started Hours Ago - 2 Onset of Pain: Immediate Severity Currently: Severe Severity Initially: Severe Pain Intensity: 10 Pain Scale Used: 0-10 Numeric Location of Head Injury: Occipital Location: Discrete At: - occipital Aggravating Factor(s): Other: - nothing Alleviating Factor(s): Other: - nothing Associated Signs And Symptoms: Negative - N/V, numbness/tingling, and visual issues, Neck Pain, Headache - Allergies/Home Medications Allergies/Adverse Reactions: Allergies Allergy/AdvReac Type Severity Reaction Status Date / Time fenofibrate [From Tricor] Allergy See Comment Verified 08/04/19 09:41 Atfxkwy-Ioi-Yzd Reductase Allergy See Comment Verified 08/04/19 09:41 Inhibitor Home Medications: Home Medications Cyclobenzaprine TAB* [Flexeril 10 MG TAB*] 10 mg PO TID PRN 08/04/19 [History Confirmed 08/04/19] Losartan Potassium 100 mg PO DAILY 08/04/19 [History Confirmed 08/04/19] Loteprednol Etabonate [Alrex] 0.2 % BOTH EYES QID 08/04/19 [History Confirmed ] Multivitamins/Minerals TAB* [Theragran/minerals TAB*] 1 tab PO DAILY 08/04/19 [ History Confirmed 08/04/19] Phytosterol [Phytosterols] 450 mg PO DAILY 08/04/19 [History Confirmed 08/04/19] Policosanol Combination No.3 [Zyncol] 30 mg PO DAILY 08/04/19 [History Confirmed 08/04/19] Potassium Citrate TAB (NF) 99 mg PO DAILY 08/04/19 [History Confirmed 08/04/19] Red Yeast Rice 1,200 mg PO BID 08/04/19 [History Confirmed 08/04/19] PMH/Surg Hx/FS Hx/Imm Hx Previously Healthy: Yes Endocrine/Hematology History: Denies: Hx Diabetes Cardiovascular History: Reports: Hx Hypertension, Other Cardiovascular Problems/ Disorders - HIGH CHOLESTEROL Denies: Hx Pacemaker/ICD Respiratory History: Reports: Hx Asthma - CHILDHOOD, Hx Sleep Apnea GI History: Reports: Hx Irritable Bowel History: Denies: Hx Renal Disease Musculoskeletal History: Reports: Hx Arthritis, Hx Tendonitis Sensory History: Reports: Hx Contacts or Glasses - GLASSES Denies: Hx Hearing Aid Opthamlomology History: Reports: Hx Contacts or Glasses - GLASSES Neurological History: Reports: Hx Migraine Psychiatric History: Reports: Hx Anxiety, Hx Panic Disorder - Cancer History Hx Chemotherapy: No Hx Radiation Therapy: No - Surgical History Surgical History: Yes Surgery Procedure, Year, and Place: LEFT KNEE SCOPES [facility]. PARTIAL DISC REMOVED FROM LUMBAR SPINE. TUMOR BASE OF SPINE REMOVED. UMBILICAL SURGERY Hx Anesthesia Reactions: No - Immunization History Immunizations Up to Date: Yes Infectious Disease History: No Infectious Disease History: Denies: Traveled Outside the [place] in Last 30 Days - Family History Known Family History: Positive: Diabetes - Social History Occupation: Employed Full-time Lives: With Family Alcohol Use: Occasionally Hx Substance Use: No Substance Use Type: Reports: None Hx Tobacco Use: Yes Smoking Status (MU): Former Smoker Type: Cigarettes Have You Smoked in the Last Year: No Review of Systems Eyes: Negative ENT: Other - neck pain Negative: Vomiting, Nausea Neurological/Mental Status: Negative - LOC, tingling, confusion Positive: Headache - bilaterally parietal region . Negative: Numbness All Other Systems Reviewed And Are Negative: Yes Physical Exam - Summary Physical Exam Summary: Constitutional: Well-developed, Well-nourished, Alert. (-) Distressed Skin: Warm, Dry HENT: Normocephalic; L occipital tenderness, midline and perispinal cervical spine tenderness Eyes: Conjunctiva normal Neck: Musculoskeletal ROM normal neck. (-) JVD, (-) Stridor, (-) Nuchal rigidity Cardio: Rhythm regular, rate normal, Heart sounds normal; Intact distal pulses; Radial pulses are 2+ and symmetric. (-) Murmur Pulmonary/Chest wall: Effort normal. (-) Respiratory distress, (-) Wheezes, (-) Rales Abd: Soft, (-) tenderness, (-) Distension, (-) Guarding, (-) Rebound Musculoskeletal: (-) Edema Lymph: (-) Cervical adenopathy Neuro: Alert, Oriented x3 Psych: Mood and affect Normal Triage Information Reviewed: Yes Vital Signs On Initial Exam: Initial Vitals Temp Pulse Resp BP Pulse Ox 98.3 F 72 18 137/69 100 08/04/19 09:37 08/04/19 09:37 08/04/19 09:37 08/04/19 09:37 08/04/19 09:37 Vital Signs Reviewed: Yes Procedures - Sedation Patient Received Moderate/Deep Sedation with Procedure: No Diagnostics - Vital Signs Vital Signs Temp Pulse Resp BP Pulse Ox 08/04/19 09:37 98.3 F 72 18 137/69 100 - Laboratory Lab Statement: Any lab studies that have been ordered have been reviewed, and results considered in the medical decision making process. - CT Brain CT CT Interpretation Completed By: Radiologist Summary of CT Findings: No acute intracranial abnormality. ED physician has reviewed this report. Cervical Spine CT CT Interpretation Completed By: Radiologist Summary of CT Findings: DEGENERATIVE DISC DISEASE AND OSTEOARTHRITIS. NO ACUTE OSSEOUS INJURY TO THE CERVICAL SPINE. ED physician has reviewed this report. Re-Evaluation - Re-Evaluation First Eval Re-Evaluation Time: 11:55 Change: Improved - updated on neg CT, pain improved Head Injury Course/Dx Course Of Treatment: 58 y/o male p/w GLF. - reporting pain to occiput, mild soft tissue hematoma L occiput, possible LOC w headache, check CT scan. - C spine tenderness, CT negative. On re evaluation, no cspine TTP. Patient was awake and alert and cooperative for exam. Patient without neurologic symptoms or neck pain. Patient did not exhibit any focal tenderness to direct palpation of the cervical spine. Patient was able to move head in all directions without limitation in the range of motion or without inciting additional pain or discomfort. No midline tenderness. Denies pain, weakness or numbness with flexion, extension, or rotation of the neck. - Diagnoses Provider Diagnoses: Fall, Head injury, Neck pain, Concussion Discharge ED - Sign-Out/Discharge Documenting (check all that apply): Patient Departure - discharge - Discharge Plan Condition: Stable Disposition: HOME Patient Education Materials: Concussion (ED) Referrals: Karen Ramirez MD [Primary Care Provider] - Additional Instructions: You were seen in the emergency department forfall. Your CT scan did not show any abnormality's. You can take Motrin and Tylenol for pain at home. Please follow up with your primary care doctor in next 2-3 days and return to emergency department for worsening headaches, numbness redness of her arms or legs, severe pain, or concerning symptoms. It was a pleasure taking care of you today.! - Billing Disposition and Condition Condition: STABLE Disposition: Home - Attestation Statements Document Initiated by Theresa: Yes Documenting Scribe: [place] Azevedo Provider For Whom Theresa is Documenting (Include Credential): Abby Cano MD Scribe Attestation: [place], scribed for Abby Cano MD on 08/04/19 at 1158. Scribe Documentation Reviewed: Yes Provider Attestation: The documentation as recorded by the Cleveland deleon accurately reflects the service I personally performed and the decisions made by , Abby Cano MD Status of Scribe Document: Viewed
[2019-08-04 11:52] VITALS: BP 133/73
== END 2019-08-04 12:11 | disposition home or self-care (01) ==
LOC: ED 09:36
DX: S06.0X9A Concussion with loss of consciousness of unspecified duration, initial encounter (principal); M54.2 Cervicalgia; W00.9XXA Unspecified fall due to ice and snow, initial encounter; Y92.9 Unspecified place or not applicable; I10 Essential (primary) hypertension; E78.00 Pure hypercholesterolemia, unspecified; F41.9 Anxiety disorder, unspecified; Z87.891 Personal history of nicotine dependence; Z79.899 Other long term (current) drug therapy; Z88.8 Allergy status to other drugs, medicaments and biological substances
CPT/HCPCS: 70450; 72125; 99283

== ENCOUNTER 2023-07-09 07:59 | Observation (INO) ==
[~2023-07-09 07:59] MED LIST changes: -Buffered Lidocaine 0.9% SYRIN* 5 ML/SYR SYRINGE INTRADERM ONE; -Dexamethasone IV* 4 MG/ML 1 ML (4 MG) IV SLOW PU ONE; -Famotidine IV* 10 MG/ML 2 ML (20 mg) IV ONE; +HYDROmorphone 1 MG/1 ML SYRINGE IV PRN; +Metoclopramide 5 MG/ML VIAL (10 mg) IV PRN; +Naloxone 0.4 mg VIAL 0.4 mg/ml 1 ml VIAL IV PRN; +Ondansetron 4 mg VIAL 2 MG/ML 2 ml VIAL IV PRN; +fentaNYL 100 mcg/2 ml 50 MCG/ML VIAL IV PRN
[2023-07-09] MEDS ORDERED: Chlorhexidine MOUTHWASH 0.12% 15 ML UDC ONE (08:23)
[2023-07-09 08:45] LABS: Rapid COVID-19 Molecular Undetected (Undetected)
[2023-07-09] MEDS ORDERED: ceFAZolin 2 GM PREMIX 2 GM/50 ML BAG ONE (08:48)
[2023-07-09] MEDS ORDERED: Propofol 10 MG/ML 20 ML BTL ONE (09:21)
[2023-07-09] MEDS ORDERED: Dexamethasone IV 4 MG/ML VIAL 1 ml VIAL ONE ×2 (09:21→11:52)
[2023-07-09] MEDS ORDERED: Ondansetron 4 mg VIAL 2 MG/ML 2 ml VIAL ONE (09:21)
[2023-07-09] MEDS ORDERED: Midazolam 2 mg/2 ml VIAL 1 mg/ml 2 ml VIAL (2 mg) ONE (09:21)
[2023-07-09] MEDS ORDERED: fentaNYL 100 mcg/2 ml 50 MCG/ML VIAL ONE (09:21)
[2023-07-09] MEDS ORDERED: Rocuronium 50 mg VIAL 10 mg/ml 5 ml VIAL (50 mg) ONE ×2 (09:21→10:54)
[2023-07-09] MEDS ORDERED: Lidocaine 2% PF 5 ML VIAL ONE (09:21)
[2023-07-09] MEDS ORDERED: ceFAZolin VIAL VIAL ONE (09:26)
[2023-07-09] MEDS ORDERED: Lidocaine 1% w EPI 1:200,000 SDV 30 ML VIAL ONE (09:26)
[2023-07-09] MEDS ORDERED: Gelfoam Sponge SIZE 100 SPONGE ONE (09:26)
[2023-07-09] MEDS ORDERED: Thrombin 5,000 UNITS(BOVINE) for Ultrasound Guided Pseudoaneursym ONE (09:26)
[2023-07-09] MEDS ORDERED: HYDROmorphone 0.5 MG/0.5 ML SYRINGE ONE (10:20)
[2023-07-09] MEDS ORDERED: Metoclopramide 5 MG/ML VIAL (10 mg) IV PRN (11:50)
[2023-07-09] MEDS ORDERED: Buffered Lidocaine 1% SYRIN 1 ml INTRADERM ONE ×2 (11:50→15:09)
[2023-07-09] MEDS ORDERED: Naloxone 0.4 mg VIAL 0.4 mg/ml 1 ml VIAL IV PRN (11:50)
[2023-07-09] MEDS ORDERED: fentaNYL 100 mcg/2 ml 50 MCG/ML VIAL IV PRN (11:50)
[2023-07-09] MEDS ORDERED: Ondansetron 4 mg VIAL 2 MG/ML 2 ml VIAL IV PRN ×2 (11:50→12:10)
[2023-07-09] MEDS ORDERED: Lactated Ringers 1000 ml BAG 1,000 ML IV SCH ×3 (12:00→16:00)
[2023-07-09] MEDS ORDERED: Calcium Carb (TUMS) 500 mg CHEW TAB PO PRN (12:10)
[2023-07-09] MEDS ORDERED: Senna TAB 8.6 mg TAB PO PRN (12:10)
[2023-07-09] MEDS ORDERED: Magnesium Hydroxide LIQ 30 ML UDC PO PRN (12:10)
[2023-07-09] MEDS ORDERED: Morphine 2 MG/ML SYRINGE IV PRN (12:10)
[2023-07-09] MEDS ORDERED: Phenol 1.4% Throat Spray BTL MT PRN (12:10)
[2023-07-09] MEDS ORDERED: Dextran 70/Hypromellose Tears Eye Drops 15 ml BTL (for Artificials Tears) BOTH EYES PRN (12:10)
[2023-07-09] MEDS: Benzocaine/Menthol LOZ MT PRN (14:48)
[2023-07-09] MEDS: CMC:Cyclosporine 0.05% OPHTH (NF) 0.4 ML VIAL BOTH EYES SCH (20:06)
[2023-07-09] MEDS: NF:Olopatadine 0.1% OPHTH (NF) 1 DROP BTL BOTH EYES SCH (20:06)
[2023-07-09] MEDS ORDERED: Insulin GLARGINE 100 un/ml 10 ml VIAL SUBCUT SCH (21:00)
[2023-07-10] MEDS ORDERED: POTASSIUM CITRATE 99 MG PO SCH (09:00)
[2023-07-10] MEDS ORDERED: Fluticasone NASAL SPRAY 50MCG 16 gm SPRAY BTL BOTH NARES SCH (09:00)
[2023-07-10] MEDS: CMC:Cyclosporine 0.05% OPHTH (NF) 0.4 ML VIAL BOTH EYES SCH ×2 (10:44→21:05)
[2023-07-10] MEDS: Benzocaine/Menthol LOZ MT PRN ×3 (10:54→16:43)
[2023-07-10] MEDS: NF:Olopatadine 0.1% OPHTH (NF) 1 DROP BTL BOTH EYES SCH (12:51)
[2023-07-10] MEDS: CMCS: Olopatadine 0.1% OPHTH (NF) 1 DROP BTL BOTH EYES SCH ×2 (13:33→21:05)
[2023-07-11] MEDS: CMCS: Olopatadine 0.1% OPHTH (NF) 1 DROP BTL BOTH EYES SCH (09:04)
[2023-07-11 10:03] VITALS: BP 134/60
[2023-07-11] MEDS: Benzocaine/Menthol LOZ MT PRN (11:55)
[2023-07-11] MEDS: CMC:Cyclosporine 0.05% OPHTH (NF) 0.4 ML VIAL BOTH EYES SCH (12:00)
== END 2023-07-11 12:27 | disposition home or self-care (01) ==
LOC: SSU 07:59 → OR 07:59
PROVIDERS: ADMIT Neurological Surgery; ATTEND Neurological Surgery